=== PATIENT | female | born 1990 | race Caucasian/White ===

== ENCOUNTER → 2017-05-04 15:59 | Outpatient (CLI) | payer OTHER ==
[~2017-05-04] VITALS: Ht 152.4 cm; Wt 60.8 kg
[~2017-05-04 15:59] MED LIST: CIPRO750 MG PO; DOLOGESIC 500-1 EACH; MILLIPRED DP5 M1 PO; TRAMADOL HCL50 MG PO; TUSICOF LIQUID120 ML; ZITHROMAX1 GM
== END | disposition home or self-care (01) ==
LOC: PPHC 15:59
DX: J06.9 Acute upper respiratory infection, unspecified (principal)

== ENCOUNTER 2017-10-26 08:50 | Emergency (ER) | payer OTHER ==
[~2017-10-26] VITALS: Ht 162.6 cm; Wt 61.2 kg
== END 2017-10-26 11:25 | disposition home or self-care (01) ==
LOC: ER 08:50
DX: G43.909 Migraine, unspecified, not intractable, without status migrainosus (principal)

== ENCOUNTER 2018-01-01 10:12 | Inpatient (IN) | payer OTHER | END 2018-01-03 10:44 | disposition HB | DRG 775 | LOC: LDR 10:12 → OB/GYN 19:43 | PROC: 0UQMXZZ Repair Vulva, External Approach (ICD-10-PCS; principal; 2018-01-01) | PROC: 10E0XZZ Delivery of Products of Conception, External Approach (ICD-10-PCS; 2018-01-01) | PROC: 0W8NXZZ Division of Female Perineum, External Approach (ICD-10-PCS; 2018-01-01) | PROC: 4A1HXCZ Monitoring of Products of Conception, Cardiac Rate, External Approach (ICD-10-PCS; 2018-01-01) | DX: O71.82 Other specified trauma to perineum and vulva (principal); O24.410 Gestational diabetes mellitus in pregnancy, diet controlled; Z22.330 Carrier of Group B streptococcus; Z3A.38 38 weeks gestation of pregnancy; Z37.0 Single live birth ==

== ENCOUNTER 2020-08-14 10:49 | Emergency (ER) | payer OTHER ==
[~2020-08-14] VITALS: Ht 162.6 cm; Wt 59.0 kg
[~2020-08-14 10:49] MED LIST changes: +PRENATAL TABLE1 EAC1 PO
== END 2020-08-14 17:19 | disposition home or self-care (01) ==
LOC: ER 10:49
DX: R07.89 Other chest pain (principal); M94.0 Chondrocostal junction syndrome [Tietze]; R00.2 Palpitations